=== PATIENT | female | born 1955 | race Caucasian/White ===

== ENCOUNTER → 2016-07-30 | Outpatient (CLI) | payer BC ==
[~2016-07-30] MED LIST: RELPAX
== END ==
LOC: MC.RAD 13:20
DX: Z12.31 Encounter for screening mammogram for malignant neoplasm of breast (principal)

== ENCOUNTER → 2016-10-23 | Outpatient (CLI) | payer BC | LOC: COL.VAS 07:50 | DX: I87.2 Venous insufficiency (chronic) (peripheral) (principal); I83.92 Asymptomatic varicose veins of left lower extremity ==

== ENCOUNTER → 2017-12-05 | Outpatient (CLI) | payer BC | LOC: MC.RAD 10-23 08:00 | DX: Z12.31 Encounter for screening mammogram for malignant neoplasm of breast (principal) ==

== ENCOUNTER → 2018-12-28 | Outpatient (CLI) | payer BC | LOC: MC.RAD 10:12 | DX: Z12.31 Encounter for screening mammogram for malignant neoplasm of breast (principal) ==

== ENCOUNTER → 2020-01-03 | Outpatient (CLI) | payer BC | LOC: MC.RAD 07:35 | DX: Z12.31 Encounter for screening mammogram for malignant neoplasm of breast (principal) ==

== ENCOUNTER → 2021-01-04 | Outpatient (CLI) | payer BC | LOC: MC.RAD 07:14 | DX: Z12.31 Encounter for screening mammogram for malignant neoplasm of breast (principal) ==

== ENCOUNTER → 2023-02-18 | Outpatient (CLI) | payer MEDICARE, OTHER | LOC: MC.RAD 11:01 | DX: Z12.31 Encounter for screening mammogram for malignant neoplasm of breast (principal) ==